=== PATIENT | male | born 1955 | race Caucasian/White ===

== ENCOUNTER 2016-10-03 17:21 | Emergency (ER) | payer MEDICARE, OTHER ==
[~2016-10-03] VITALS: Ht 182.9 cm; Wt 110.9 kg
[~2016-10-03 17:21] MED LIST: AMIT10 PO; ATOR20TA42 PO; BACL10TA PO; BENA25TA8 PO; BUPR300T PO; CYMB30CA PO; DULE200A INH; DULO30 PO; METO100T PO; MORP1INJ45 PO; MORP30SU PO; ONDA8 SL; OXYC-360 PO; PROM25R PR; PROM25SU8 PR; PROM25TA5 PO; PROT40TA PO; SENN1TAB11 PO; TEMA30CA PO; UMEC1INH INH; VENTAER INH; VITA200017 PO; XANA1TAB6 PO
[2016-10-03 17:22] VITALS: BP 181/107; PULSE 96; RESP 14; TEMP 98; O2SAT 96
[2016-10-03] MEDS ORDERED: SODIUM CHLOR 0.9% 1000 ML INJ 1,000 ML IV SCH (17:46)
[2016-10-03] MEDS ORDERED: METOCLOPRAMIDE HCL 10 MG/2 ML VIAL IV PUSH ONE (18:00)
[2016-10-03] MEDS ORDERED: ONDANSETRON HCL 4 MG/2 ML VIAL IVP ONE (18:00)
[2016-10-03] MEDS ORDERED: SODIUM CHLORIDE 0.9% FLUSH 5 ML FLUSH IVF PRN (18:00)
[2016-10-03] MEDS ORDERED: MORPHINE SULFATE 4 MG/ML INJ IV PUSH ONE (18:00)
[2016-10-03] MEDS ORDERED: PANT40TA3 PO (18:10)
[2016-10-03] MEDS ORDERED: DIPH25TA2 PO (18:10)
[2016-10-03] MEDS ORDERED: PERC5TAB12 PO (18:10)
[2016-10-03] MEDS ORDERED: LIPI20TA PO (18:10)
[2016-10-03] MEDS ORDERED: TEMA30CA PO (18:10)
[2016-10-03] MEDS ORDERED: WELLTAB39 PO (18:10)
[2016-10-03] MEDS ORDERED: PROM1SUP7 PR (18:10)
[2016-10-03] MEDS ORDERED: PROM25TA5 PO (18:10)
[2016-10-03] MEDS ORDERED: CYMB30CA PO (18:10)
[2016-10-03] MEDS ORDERED: AMIT10TA6 PO (18:10)
[2016-10-03] MEDS ORDERED: XANA1TAB2 PO (18:10)
[2016-10-03] MEDS ORDERED: SENN1TAB PO (18:10)
[2016-10-03] MEDS ORDERED: METO50TA PO (18:10)
[2016-10-03] MEDS ORDERED: VITA200012 PO (18:10)
[2016-10-03] MEDS ORDERED: BACL10TA PO (18:10)
[2016-10-03] MEDS ORDERED: VENTAER INH (18:10)
[2016-10-03] MEDS ORDERED: MORP1TAB25 PO (18:10)
[2016-10-03] MEDS ORDERED: CYMB60CA PO (18:10)
[2016-10-03] MEDS ORDERED: MORP1TAB24 PO (18:10)
[2016-10-03] MEDS ORDERED: SODIUM CHLOR 0.9% 1000 ML INJ 1,000 ML IV ONE (18:15)
[2016-10-03] MEDS ORDERED: HYDROmorphone HCL PF 1 MG/ML VIAL IV PUSH ONE (18:15)
[2016-10-03] MEDS ORDERED: LORazepam 2 MG/ML VIAL IV PUSH ONE (18:15)
[2016-10-03 18:22] LABS: AUTOMATED NEUTROPHIL # 13.2 TH/MM3 (1.8-7.7); BASOPHIL # 0.1 TH/MM3 (0-0.2); BASOPHIL % 0.5 % (0.0-2.0); HEMATOCRIT 41.7 % (39.0-51.0); HEMO FLAGS DIFF FINAL; LYMPHOCYTE # 0.3 TH/MM3 (1.0-4.8); MEAN CORPUSCULAR HEMOGLOBIN 28.1 PG (27.0-34.0); MEAN CORPUSCULAR HGB CONC 32.7 % (32.0-36.0); MONO % 4.9 % (0.0-8.0); NEUT % 92.6 % (16.0-70.0); PLATELET COUNT 254 TH/MM3 (150-450); RED BLOOD COUNT 4.86 MIL/MM3 (4.50-5.90); RED CELL DISTRIBUTION WIDTH 14.3 % (11.6-17.2); WHITE BLOOD COUNT 14.2 TH/MM3 (4.0-11.0)
--- NOTE | 2016-10-03 18:25 | PD ---
HPI . Abdominal pain and vomiting Chief Complaint: GI Complaint Time Seen by Provider: 17:45 Travel History International Travel<30 days: No Contact w/Intl Traveler<30days: No Traveled to known affect area: No History of Present Illness HPI Patient presents with the acute onset of upper abdominal pain associated with emesis. He states that he has vomited 50-60 times today. He states that his stools are always loose a normal loose stool this morning. As any associated fever. He denies any associated urinary tract symptoms. He denies any chest pain or shortness of breath. He reports previous similar episodes. He states that he was here about a year ago was treated with fluids, pain medications and anti-emetics. He was eventually discharged home. 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% functioning one kidney) Hypertension: Yes Kidney Stones: Yes Neurologic: Yes (post herpatic neuralgia) Psychiatric: Yes Respiratory: Yes (COPD) Integumentary: Yes (staph infection) Immunizations Current: Yes Pneumonia: Yes (NOSOCOMIAL PNEUMonIA IN THE ICU 1997/ SEVERE SCARRING FROM IT) Tetanus Vaccination: > 5 Years Influenza Vaccination: Yes Past Surgical History Abdominal Surgery: Yes (LAP NISSON FUNDOPLACATION VENTRAL HERNIA REPAIR) Body Medical Devices: WD VAC Pacemaker: No Tonsillectomy: Yes Other Surgery: Yes (LITHOTRIPSY) Social History Alcohol Use: No Tobacco Use: No Substance Use: No Allergies-Medications (Allergen,Severity, Reaction): Coded Allergies: Levaquin (Verified Allergy, Intermediate, RASH, 10/03/16) Fiorinal (Verified Allergy, Mild, RASH, 10/03/16) Penicillin (Verified Allergy, Mild, RASH, 10/03/16) Sulfa (Verified Allergy, Mild, RASH, 10/03/16) Reported Meds & Prescriptions Reported Meds & Active Scripts Active Reported Temazepam 30 Mg Cap 30 Mg PO HS PRN Phenergan Supp (Promethazine HCl) 25 Mg Supp 25 Mg SC Q6H PRN Phenergan (Promethazine HCl) 25 Mg Tab 25 Mg PO Q6H PRN Pantoprazole (Pantoprazole Sodium) 40 Mg Tab 40 Mg PO BID Percocet (Oxycodone-Acetaminophen) 5-325 mg Tab 1 Tab PO TID PRN Morphine ER (Morphine Sulfate) 15 Mg Tab 15 Mg PO HS Morphine ER (Morphine Sulfate) 30 Mg Tab 30 Mg PO TID Metoprolol Tartrate 50 Mg Tab 50 Mg PO DAILY Cymbalta DR (Duloxetine HCl) 60 Mg Capdr 60 Mg PO DAILY Senna-Plus (Sennosides-Docusate Sodium) 8.6-50 Mg Tab 8 Tab PO DAILY Diphenhydramine (Diphenhydramine HCl) 25 Mg Tab 25 Mg PO HS PRN Cymbalta DR (Duloxetine HCl) 30 Mg Capdr 30 Mg PO HS Vitamin D3 (Cholecalciferol) 2,000 Unit Tab 2,000 Units PO DAILY Wellbutrin Xl 24 HR (Bupropion HCl) 300 Mg Tab 300 Mg PO DAILY Baclofen 10 Mg Tab 5 Mg PO QID Lipitor (Atorvastatin Calcium) 20 Mg Tab 20 Mg PO HS Amitriptyline (Amitriptyline HCl) 10 Mg Tab 10 Mg PO HS Xanax (Alprazolam) 1 Mg Tab 1 Mg PO DAILY PRN Ventolin Hfa 18 GM Inh (Albuterol Sulfate) 90 Mcg/Act Aer 1-2 Puff INH Q4-6H PRN Review of Systems Except as stated in HPI: all other systems reviewed are Neg General / Constitutional: No: Fever, Chills HENT: Positive: Other (mouth feels dry), No: Headaches, Lightheadedness Cardiovascular: No: Chest Pain or Discomfort Respiratory: No: Shortness of Breath Gastrointestinal: Positive: Nausea, Vomiting, Abdominal Pain, No: Changes in Bowel Habits Genitourinary: No: Urgency, Frequency, Dysuria Physical Exam Narrative GENERAL: This is an obese man who is clammy. SKIN: Warm and clammy. HEAD: Atraumatic. Normocephalic. EYES: Pupils equal and round. ENT: No nasal bleeding or discharge. Mucous membranes pink but dry. NECK: Trachea midline. Neck is supple. CARDIOVASCULAR: Regular rate and rhythm. Heart sounds are normal. RESPIRATORY: No accessory muscle use. Lungs are clear with full air movement throughout. GASTROINTESTINAL: Abdomen soft. Epigastric tenderness. Nondistended. Positive bowel sounds. MUSCULOSKELETAL: No obvious deformities. No edema. NEUROLOGICAL: Awake and alert. No obvious cranial nerve deficits. Motor grossly within normal limits. Normal speech. PSYCHIATRIC: Appropriate mood and affect; insight and judgment normal. Data Data Last Documented VS Vital Signs Date Time Temp Pulse Resp B/P Pulse Ox O2 Delivery O2 Flow Rate FiO2 10/03/16 19:47 95 18 173/97 96 10/03/16 17:22 98.0 Orders Complete Blood Count With Diff (10/03/16 17:46) Comprehensive Metabolic Panel (10/03/16 17:46) Lipase (10/03/16 17:46) Iv Access Insert/Monitor (10/03/16 17:46) Morphine Inj (Morphine Inj) (10/03/16 18:00) Ondansetron Inj (Zofran Inj) (10/03/16 18:00) Sodium Chlor 0.9% 1000 Ml Inj (Ns 1000 M (10/03/16 17:46) Sodium Chloride 0.9% Flush (Ns Flush) (10/03/16 18:00) Metoclopramide Inj (Reglan Inj) (10/03/16 18:00) Lorazepam Inj (Ativan Inj) (10/03/16 18:15) Sodium Chlor 0.9% 1000 Ml Inj (Ns 1000 M (10/03/16 18:15) Hydromorphone Pf Inj (Dilaudid Pf Inj) (10/03/16 18:15) Ct Abd/Pel W/O Iv Contrast (10/03/16 18:25) Oral Contrast - Adult (10/03/16 18:31) Diatrizoate Liq ( Gastrosaul Liq) (10/03/16 18:47) Labs Laboratory Tests Test 10/03/16 17:50 White Blood Count 14.2 TH/MM3 Red Blood Count 4.86 MIL/MM3 Hemoglobin 13.7 GM/DL Hematocrit 41.7 % Mean Corpuscular Volume 86.0 FL Mean Corpuscular Hemoglobin 28.1 PG Mean Corpuscular Hemoglobin 32.7 % Concent Red Cell Distribution Width 14.3 % Platelet Count 254 TH/MM3 Mean Platelet Volume 9.2 FL Neutrophils (%) (Auto) 92.6 % Lymphocytes (%) (Auto) 2.0 % Monocytes (%) (Auto) 4.9 % Eosinophils (%) (Auto) 0.0 % Basophils (%) (Auto) 0.5 % Neutrophils # (Auto) 13.2 TH/MM3 Lymphocytes # (Auto) 0.3 TH/MM3 Monocytes # (Auto) 0.7 TH/MM3 Eosinophils # (Auto) 0.0 TH/MM3 Basophils # (Auto) 0.1 TH/MM3 CBC Comment DIFF FINAL Differential Comment Sodium Level 133 MEQ/L Potassium Level 3.9 MEQ/L Chloride Level 98 MEQ/L Carbon Dioxide Level 23.8 MEQ/L Anion Gap 11 MEQ/L Blood Urea Nitrogen 13 MG/DL Creatinine 1.86 MG/DL Estimat Glomerular Filtration 37 ML/MIN Rate Random Glucose 158 MG/DL Calcium Level 8.5 MG/DL Total Bilirubin 0.8 MG/DL Aspartate Amino Transf 21 U/L (AST/SGOT) Alanine Aminotransferase 22 U/L (ALT/SGPT) Alkaline Phosphatase 108 U/L Total Protein 7.4 GM/DL Albumin 3.5 GM/DL Lipase 78 U/L MDM Medical Decision Making Medical Screen Exam Complete: Yes Emergency Medical Condition: Yes Medical Record Reviewed: Yes (the patient's records from when he was seen here about a year ago was reviewed. He had a negative CT of the abdomen. The surgical history is previous Gayle fundoplication. He underwent a redo in 2011. He subsequently developed an obstruction and had to have a partial colectomy.) Differential Diagnosis Differential diagnosis of abdominal pain includes but is not limited to gastritis, pancreatitis, hepatitis, gastroenteritis, gallbladder disease, constipation, urinary retention, UTI, peptic ulcer disease, diverticulitis or appendicitis Narrative Course Patient presents for evaluation and treatment of upper abdominal pain with persistent vomiting. CBC & BMP Diagram 10/03/16 17:50 LFTs are normal. Lipase is normal. His disposition is being delayed because he has a CT of the abdomen and pelvis with oral contrast pending. Last Impressions Abdomen/Pelvis CT 10/03/16 1825 Signed Impressions: Service Date/Time: Monday, October 03, 2016 19:58 - CONCLUSION: No evidence of acute process. Candido Ford MD This emesis seems to have subsided. He will be stable for discharge once his fluids are in. Diagnosis Primary Impression: Vomiting Qualified Code: R11.2 - Non-intractable vomiting with nausea, unspecified vomiting type Additional Impression: Abdominal pain Qualified Code: R10.13 - Epigastric pain Patient Instructions: Acute Nausea and Vomiting (DC), General Instructions Disposition: 01 DISCHARGE HOME Condition: Stable MoristersKaelyn MD Oct 03, 2016 18:25
[2016-10-03 18:45] LABS: ALKALINE PHOSPHATASE 108 U/L (45-117); ALT (GPT) 22 U/L (12-78); ANION GAP 11 MEQ/L (5-15); AST (GOT) 21 U/L (15-37); BICARBONATE 23.8 MEQ/L (21.0-32.0); BLOOD UREA NITROGEN 13 MG/DL (7-18); CHLORIDE 98 MEQ/L (98-107); GLOMERULAR FILTRATION RATE 37 ML/MIN (>89); POTASSIUM 3.9 MEQ/L (3.5-5.1); SODIUM (NA) 133 MEQ/L (136-145); TOTAL BILIRUBIN ADULT 0.8 MG/DL (0.2-1.0)
[2016-10-03] MEDS ORDERED: DIATRIZOATE MEGLUM/DIATRIZOATE SOD 9 ML CUP ONE (18:47)
[2016-10-03 19:47] VITALS: BP 173/97; PULSE 95; RESP 18; O2SAT 96
--- NOTE | 2016-10-03 20:47 | RADRPT ---
EXAM DATE/TIME: 10/03/2016 19:58 [facility] COMPARISON: CT ABDOMEN & PELVIS W/O CONTRAST, August 19, 2015, 18:24. INDICATIONS : Nausea, vomiting, abdomen pain. ORAL CONTRAST: Partial prescribed oral contrast ingested. RADIATION DOSE: 11.22 CTDIvol (mGy) MEDICAL HISTORY : Cardiovascular disease. Hypertension. Gastroparesis.renal failure SURGICAL HISTORY : lithotriipsy,hernea repair ENCOUNTER: Initial ACUITY: 1 day PAIN SCALE: 9/10 LOCATION: Abdomen TECHNIQUE: Volumetric scanning of the abdomen and pelvis was performed. Using automated exposure control and ad justment of the mA and/or kV according to patient size, radiation dose was kept as low as reasonably achievable to obtain optimal diagnostic quality images. FINDINGS: The appearance of the abdomen and pelvis are stable compared to the prior study. Previously described changes which include anterior abdominal wall scarring, postsurgical changes in the upper abdomen, an atrophic right kidney and a small hiatal hernia are again noted. There are no acute inflammatory changes. There is no evidence of intestinal structure, biliary obstru ction or hydronephrosis. There are no extraintestinal fluid collections. CONCLUSION: No evidence of acute process. Candido Ford MD on October 03, 2016 at 20:41 Board Certified Radiologist. This report was verified electronically.
[2016-10-03 20:57] VITALS: BP 149/82; PULSE 94; RESP 18; O2SAT 98
== END 2016-10-03 22:00 | disposition home or self-care (01) ==
LOC: NEPA 17:21
DX: R10.10 Upper abdominal pain, unspecified (principal); R11.10 Vomiting, unspecified; I10 Essential (primary) hypertension; K22.70 Barrett's esophagus without dysplasia; J44.9 Chronic obstructive pulmonary disease, unspecified
CPT/HCPCS: 74176; 80053; 83690; 85025; 96374; 96375; 99284; J1170; J2060; J2270; J2405; J2765; J7030; Q9963